=== PATIENT | male | born 1985 | race Two or more races ===

== ENCOUNTER 2020-07-05 09:08 | Emergency (ER) | payer BC ==
[2020-07-05 10:02] VITALS: BP 155/73; PULSE 78
[2020-07-05] MEDS ORDERED: Ondansetron 4 MG/2 ML SDV IVPUSH ONE (10:08)
[2020-07-05] MEDS ORDERED: Ketorolac 15 MG/ML SDV IVPUSH ONE (10:11)
[2020-07-05] MEDS ORDERED: Sodium Chloride 0.9% 1,000 ML IV SCH ×2 (10:15→10:45)
--- NOTE | 2020-07-05 10:29 | EDM.PDOC ---
ED HPI GENERAL MEDICAL PROBLEM - General Chief Complaint: Flank Pain Stated Complaint: KIDNEY STONE Time Seen by Provider: 07/05/20 10:29 - History of Present Illness INITIAL COMMENTS - FREE TEXT/NARRATIVE: 35-year-old male presents the emergency room with left-sided flank and groin pain. This pain started around 6:00 this morning pretty sudden onset. Started his flank pain radiated down into his groin is seems to be worse in the left lower abdomen at this time. Patient has a history of kidney stones on the right he had 1 stone retrieved and they were pulled some stones out of his kidney as well he had a proximal right kidney stone that was not resolving on its own. This last kidney stone was in 2017. It was also on the right side. Today symptoms are reminded very much of what he had at that point. Patient has some nausea no vomiting he is not aware of any fevers or chills prior to this he had no burning or frequency with urination. Patient was able to give a urine specimen today that does not look grossly bloody. Left Flank Pain Score (Numeric/FACES): 9 - Related Data Allergies Allergy/AdvReac Type Severity Reaction Status Date / Time No Known Allergies Allergy Verified 07/05/20 10:02 Home Meds: Home Meds Cetirizine HCl [Zyrtec] 10 mg PO BID 08/05/16 [History] Fluticasone Propionate [Flonase] 1 spray NASBOTH BID 08/05/16 [History] Losartan [Cozaar] 100 mg PO DAILY 08/05/16 [History] Rosuvastatin [Crestor] 10 mg PO DAILY 07/05/20 [History] Tamsulosin [Tamsulosin 24 Hr] 0.4 mg PO DAILY #7 cap.er 07/05/20 [Rx] hydroCHLOROthiazide [Hydrochlorothiazide] 25 mg PO DAILY 07/05/20 [History] oxyCODONE HCl/Acetaminophen [Oxycodone-Acetaminophen 5-325] 1 - 2 each PO Q6H PRN #20 tablet 07/05/20 [Rx] Past Medical History HEENT History: Reports: Allergic Rhinitis, Impaired Vision Other HEENT History: wears eyeglasses Cardiovascular History: Reports: Hypertension Musculoskeletal History: Reports: Fracture, Other (See Below) - Infectious Disease History Infectious Disease History: Reports: Chicken Pox Social & Family History - Caffeine Use Caffeine Use: Reports: Coffee - Living Situation & Occupation Living situation: Reports: , with Spouse, with Family Occupation: Employed ED ROS GENERAL - Review of Systems Review Of Systems: See Below Constitutional: Reports: No Symptoms HEENT: Reports: No Symptoms Respiratory: Reports: No Symptoms Cardiovascular: Reports: No Symptoms GI/Abdominal: Reports: Abdominal Pain, Nausea. Denies: Constipation, Diarrhea, Vomiting : Reports: Flank Pain. Denies: Dysuria, Frequency, Hematuria, Urgency Skin: Reports: No Symptoms Neurological: Reports: No Symptoms Psychiatric: Reports: No Symptoms ED EXAM, GENERAL - Physical Exam Exam: See Below Exam Limited By: No Limitations General Appearance: Alert, No Apparent Distress Head: Atraumatic, Normocephalic Neck: Normal Inspection, Supple, Non-Tender, Full Range of Motion Respiratory/Chest: No Respiratory Distress, Lungs Clear, Normal Breath Sounds Cardiovascular: Regular Rate, Rhythm, No Edema, No Murmur GI/Abdominal: Normal Bowel Sounds, Soft, Other (Patient has no discomfort on the right side of the abdomen palpation he has significant left-sided discomfort without palpation this is slightly aggravated in the left lower quadrant with palpation. No rigidity rebound or guarding appreciated.). No: Guarding, Rigid, Rebound Back Exam: Normal Inspection, CVA Tenderness (L). No: CVA Tenderness (R) Extremities: Normal Inspection, No Pedal Edema Neurological: Alert, Oriented, Normal Cognition Course - Vital Signs Last Recorded V/S: Last Vital Signs Temp 36.9 C 07/05/20 10:00 Pulse 78 07/05/20 10:00 Resp 16 07/05/20 10:00 BP 155/73 H 07/05/20 10:00 Pulse Ox 100 07/05/20 10:00 - Orders/Labs/Meds Orders: Active Orders 24 hr Category Date Time Status Abdomen Pelvis wo Cont [CT] Stat Exams 07/05/20 10:47 Taken Sodium Chloride 0.9% [Normal Saline] 1,000 ml Med 07/05/20 10:15 Active IV ASDIRECTED Medication Orders Sodium Chloride (Normal Saline) 1,000 mls @ 150 mls/hr IV ASDIRECTED [facility] Last Admin: 07/05/20 12:01 Dose: 150 mls/hr Documented by: [email or web address] Labs: Laboratory Tests 07/05/20 07/05/20 07/05/20 Range/Units 11:05 11:35 11:35 WBC 12.64 H (4.23-9.07) K/mm3 RBC 5.02 (4.63-6.08) M/mm3 Hgb 14.5 (13.7-17.5) gm/dl Hct 43.4 (40.1-51.0) % MCV 86.5 (79.0-92.2) fl MCH 28.9 (25.7-32.2) pg MCHC 33.4 (32.2-35.5) g/dl RDW Std Deviation 43.9 (35.1-43.9) fL Plt Count 260 (163-337) K/mm3 MPV 10.3 (9.4-12.3) fl Neut % (Auto) 87.0 H (34.0-67.9) % Lymph % (Auto) 7.8 L (21.8-53.1) % [place] % (Auto) 4.7 L (5.3-12.2) % Eos % (Auto) 0.2 L (0.8-7.0) Baso % (Auto) 0.1 (0.1-1.2) % Neut # (Auto) 10.99 H (1.78-5.38) K/mm3 Lymph # (Auto) 0.99 L (1.32-3.57) K/mm3 [place] # (Auto) 0.60 (0.30-0.82) K/mm3 Eos # (Auto) 0.02 L (0.04-0.54) K/mm3 Baso # (Auto) 0.01 (0.01-0.08) K/mm3 Manual Slide Review Abnormal smear Sodium 144 (136-145) mEq/L Potassium 4.0 (3.5-5.1) mEq/L Chloride 107 (98-107) mEq/L Carbon Dioxide 28 (21-32) mEq/L Anion Gap 13.0 (5-15) BUN 17 (7-18) mg/dL Creatinine 1.1 (0.7-1.3) mg/dL Est Cr Clr Drug Dosing 100.92 mL/min Estimated GFR (MDRD) > 60 (>60) mL/min BUN/Creatinine Ratio 15.5 (14-18) Glucose 108 H (74-106) mg/dL Calcium 9.2 (8.5-10.1) mg/dL Total Bilirubin 0.4 (0.2-1.0) mg/dL AST 26 (15-37) U/L ALT 61 (16-63) U/L Alkaline Phosphatase 79 (46-116) U/L Total Protein 7.3 (6.4-8.2) g/dl Albumin 3.9 (3.4-5.0) g/dl Globulin 3.4 gm/dL Albumin/Globulin Ratio 1.2 (1-2) Urine Color Yellow (Yellow) Urine Appearance Cloudy H (Clear) Urine pH 6.0 (5.0-8.0) Ur Specific [place] > or = 1.030 (1.005-1.030) Urine Protein 1+ H (Negative) Urine Glucose (UA) Negative (Negative) Urine Ketones Negative (Negative) Urine Occult Blood 2+ H (Negative) Urine Nitrite Negative (Negative) Urine Bilirubin Negative (Negative) Urine Urobilinogen 0.2 (0.2-1.0) Ur Leukocyte Esterase Negative (Negative) U Hyaline Cast (Auto) 0-5 (0-5) /lpf Urine RBC 50-75 H (0-5) /hpf Urine WBC 0-5 (0-5) /hpf Ur Squamous Epith Cells 0-5 (0-5) /hpf Urine Bacteria Moderate H (FEW) /hpf Urine Mucus Rare (FEW) /hpf Meds: Medications Generic Name Dose Route Start Last Admin Trade Name Freq PRN Reason Stop Dose Admin Sodium Chloride 1,000 mls @ 150 mls/hr 07/05/20 10:15 07/05/20 12:01 Normal Saline IV 150 mls/hr [facility] Administration Discontinued Medications Generic Name Dose Route Start Last Admin Trade Name Freq PRN Reason Stop Dose Admin Fentanyl 100 mcg 07/05/20 10:48 07/05/20 11:22 Sublimaze IVPUSH 07/05/20 10:49 100 mcg ONETIME ONE Administration Sodium Chloride 1,000 mls @ 150 mls/hr 07/05/20 10:45 Normal Saline IV [facility] Ketorolac Tromethamine 15 mg 07/05/20 10:11 07/05/20 11:22 Toradol IVPUSH 07/05/20 10:12 Not Given ONETIME ONE Ondansetron HCl 4 mg 07/05/20 10:08 07/05/20 11:22 Zofran IVPUSH 07/05/20 10:09 4 mg ONETIME ONE Administration Tamsulosin HCl 0.4 mg 07/05/20 13:20 Flomax PO 07/05/20 13:21 ONETIME ONE - Re-Assessments/Exams Free Text/Narrative Re-Assessment/Exam: 07/05/20 13:23 Laboratory evaluation is nondiagnostic white count is minimally elevated ur inalysis shows no sign of infection but a small amount of hematuria. For his age his BUN and creatinine are elevated. Patient was started on NS at 150 cc an hour initially. Did get a CT which shows a 3.5 mm distal left ureter stone causing dilation of the left collecting system and left ureter there is some perirenal stranding noted in the kidney is edematous. Patient be started on Flomax. He will be given a prescription for Percocet to control his discomfort. Departure - Departure Time of Disposition: 13:25 Disposition: Home, Self-Care Clinical Impression: Kidney stone on left side - Discharge Information Referrals: Nydia Gutiérrez, [facility] [Primary Care Provider] - Forms: ED Department Discharge Additional Instructions: Return to the emergency room with any questions problems or worsening symptoms. Follow-up with your regular healthcare provider on Monday or Monday for recheck. Use the pain medication only as needed for control of the pain. However allow 12 hours after using this medication before driving or returning to work. You have been started on Flomax this is to help facilitate passage of the kidney stone. Sepsis Event Note (ED) - Evaluation Sepsis Screening Result: No Definite Risk - Focused Exam Vital Signs: Vital Signs Temp Pulse Resp BP Pulse Ox 07/05/20 10:00 36.9 C 78 16 155/73 H 100 - My Orders Last 24 Hours: My Active Orders 07/05/20 10:15 Sodium Chloride 0.9% [Normal Saline] 1,000 ml IV ASDIRECTED 07/05/20 10:47 Abdomen Pelvis wo Cont [CT] Stat - Assessment/Plan Last 24 Hours: My Active Orders 07/05/20 10:15 Sodium Chloride 0.9% [Normal Saline] 1,000 ml IV ASDIRECTED 07/05/20 10:47 Abdomen Pelvis wo Cont [CT] Stat
[2020-07-05] MEDS ORDERED: fentaNYL 100 MCG/2 ML SDV IVPUSH ONE (10:48)
[2020-07-05] MEDS ORDERED: Tamsulosin 0.4 MG Cap.ER PO ONE (13:20)
--- NOTE | 2020-07-06 13:46 | CT ---
CT abdomen and pelvis Technique: Multiple axial sections were obtained from above the dome of the diaphragm inferiorly through the pubic symphysis. Intravenous and oral contrast not utilized. Study has been performed as a ureteral stone protocol. Reconstructed coronal and sagittal images were obtained. Comparison: Previous CT abdomen and pelvis study of 03/22/17. Findings: Visualized lung bases shows nothing acute. Liver shows diminished density compatible with mild fatty infiltration. No definite focal abnormality is otherwise seen. Spleen appears normal. Small hiatal hernia is seen Gallbladder contains no calcified gallstones. Adrenal glands show no nodule. Pancreas appears normal. Small nonobstructing calculi are seen within both kidneys. Left renal pelvis and left ureter are dilated. These findings are due to to an obstructing stone within the distal left ureter measuring about 4 mm. This occurs approximately 1.5 cm from the UVJ. No other ureteral calculi are seen. Ureteral stone is causing very slight inflammatory change around the left kidney. Aorta shows no aneurysm. No retroperitoneal adenopathy or mesenteric abnormalities are seen. No pelvic mass or adenopathy is appreciated. Appendix is seen which is normal. No free fluid is appreciated. Bone window settings were reviewed which show slight degenerative change primarily at L5-S1. Impression: 1. Obstructing distal left ureteral stone as described above measuring around 4 mm. Several nonobstructing stones are also noted within both kidneys. 2. Fatty infiltration within the liver. Diagnostic code #3 I agree with preliminary report from [facility], finalized on 07/05/20, 12:45 PM Central Daylight Time
== END 2020-07-05 13:49 | disposition home or self-care (01) ==
LOC: JD.ED 09:08
DX: N20.2 Calculus of kidney with calculus of ureter (principal); I10 Essential (primary) hypertension; Z79.899 Other long term (current) drug therapy
CPT/HCPCS: 36415; 74176; 80053; 81001; 85025; 96374; 96375; 99284; A9270; J2405; J3010; J7030

== ENCOUNTER 2022-01-29 22:40 | Emergency (ER) | payer BC ==
[2022-01-29 23:25] VITALS: BP 159/91; PULSE 75
[2022-01-29] MEDS ORDERED: HYDROmorphone 1 MG/ML Syringe IVPUSH ONE (23:30)
[2022-01-29] MEDS ORDERED: Sodium Chloride 0.9% 1,000 ML IV SCH (23:30)
[2022-01-29] MEDS ORDERED: Sodium Chloride 0.9% 10 ML Syringe FLUSH PRN (23:30)
[2022-01-29] MEDS ORDERED: Ondansetron 4 MG/2 ML SDV IVPUSH ONE (23:30)
== END 2022-01-30 00:44 | disposition home or self-care (01) ==
LOC: JD.ED 22:40
DX: N13.2 Hydronephrosis with renal and ureteral calculous obstruction (principal); I10 Essential (primary) hypertension; Z79.899 Other long term (current) drug therapy
CPT/HCPCS: 74176; 81001; 96361; 96374; 96375; 99284; J1170; J2405; J3490; J7030